=== PATIENT | male | born 1940 | race Caucasian/White ===

== ENCOUNTER 2018-04-29 14:41 | Emergency (ER) | payer OTHER ==
[~2018-04-29] VITALS: Ht 177.8 cm; Wt 80.9 kg
[2018-04-29 14:56] VITALS: Ht 177.8 cm; Wt 80.9 kg
[2018-04-29] MEDS ORDERED: METOPROLOL TART25 MG PO (15:07)
[2018-04-29] MEDS ORDERED: PRAVACHOL40 MG PO (15:10)
[2018-04-29 15:40] LABS: BASOPHILS 0.3 % (0-2); EOSINOPHILS 0.8 % (0-7); HEMATOCRIT 51.7 % (42.0-54.0); HEMOGLOBIN 18.1 g/dL (13.5-17.5); IMMATURE GRANULOCYTES 0.4 % (0-5); LYMPHOCYTES 19.1 % (15-50); MCH 30.5 pg (26.0-34.0); MEAN PLATELET VOLUME 10.3 fL (7.4-10.4); MONOCYTES 8.6 % (2-11); NEUTROPHILS 70.8 % (40-80); PLATELET COUNT 191 10x3/uL (130-400); RBC 5.94 10x6/uL (4.20-6.10); RDW 12.9 % (11.5-14.5); WBC 11.8 10x3/uL (4.8-10.8)
[2018-04-29 15:54] LABS: ALBUMIN 3.9 g/dL (3.4-5.0); ALKALINE PHOSPHATASE 82 U/L (46-116); ALT (SGPT) 32 U/L (10-68); CALC OSMOLALITY 277 mosm/kg (275-300); CALCIUM 9.4 mg/dL (8.5-10.1); CARBON DIOXIDE 28.5 mmol/L (21.0-32.0); CHLORIDE - SERUM 103 mmol/L (98-107); GLUCOSE 104 mg/dL (74-106); POTASSIUM - SERUM 4.6 mmol/L (3.5-5.1); PROTEIN - SERUM 7.5 g/dL (6.4-8.2); SODIUM 140 mmol/L (136-145); UREA NITROGEN 10 mg/dL (7-18); eGFR NON AFRICAN AMERICAN 77 mL/min (90-120)
[2018-04-29 17:58] VITALS: BP 118/85
== END 2018-04-29 17:58 | disposition home or self-care (01) ==
LOC: D.ER 14:41
PROVIDERS: Emergency Medicine
DX: I95.2 Hypotension due to drugs (principal)

== ENCOUNTER 2019-01-21 09:02 | Emergency (ER) | payer OTHER ==
[~2019-01-21] VITALS: Ht 177.8 cm; Wt 80.9 kg
[~2019-01-21 09:02] MED LIST: METOPROLOL TART25 MG PO; PRAVACHOL40 MG PO
[2019-01-21 09:04] VITALS: Ht 177.8 cm; Wt 80.9 kg
[2019-01-21] MEDS ORDERED: CO Q-1030 MG PO (09:05)
[2019-01-21] MEDS ORDERED: MEDROL DOSE PACK4 MG PO (10:39)
[2019-01-21 10:47] VITALS: BP 142/86
== END 2019-01-21 10:47 | disposition home or self-care (01) ==
LOC: D.ER 09:02
DX: L23.7 Allergic contact dermatitis due to plants, except food (principal)